=== PATIENT | female | born 1965 | race Hispanic/Latino ===

== ENCOUNTER 2019-03-28 07:08 | Day surgery (SDC) | payer BC ==
[~2019-03-28] VITALS: Ht 157.5 cm; Wt 102.1 kg
[2019-03-28] MEDS ORDERED: SODIUM CHLORIDE 0.9% 1000ML 1,000 ML IV ONE (07:49)
[2019-03-28] MEDS ORDERED: FISH OIL PO (08:21)
[2019-03-28] MEDS ORDERED: ASCO10007 PO (08:21)
[2019-03-28] MEDS ORDERED: ASPI-555 PO (08:21)
[2019-03-28] MEDS ORDERED: CHOL500051 PO (08:21)
[2019-03-28] MEDS ORDERED: IBUP-2071 PO (08:21)
[2019-03-28] MEDS ORDERED: CINN500C PO (08:21)
[2019-03-28] MEDS ORDERED: LEVO50TA6 PO (08:21)
[2019-03-28] MEDS ORDERED: COLLAGEN PO (08:21)
[2019-03-28] MEDS ORDERED: CALC1TAB85 PO (08:21)
[2019-03-28] MEDS ORDERED: CYAN-35 PO (08:21)
[2019-03-28] MEDS ORDERED: PROPOFOL 10 MG/ML 20ML VIAL IV ONE ×2 (08:37)
[2019-03-28 09:00] VITALS: BP 113/77
[2019-03-28 09:05] VITALS: BP 116/71
[2019-03-28 09:11] VITALS: BP 124/82
== END 2019-03-28 09:36 | disposition home or self-care (01) ==
LOC: DAH 07:08 → ENDO 07:08
PROVIDERS: ATTEND Surgery
DX: Z12.11 Encounter for screening for malignant neoplasm of colon (principal); K57.30 Diverticulosis of large intestine without perforation or abscess without bleeding; K64.0 First degree hemorrhoids; Z79.82 Long term (current) use of aspirin; Z79.899 Other long term (current) drug therapy; Z98.890 Other specified postprocedural states; Z90.710 Acquired absence of both cervix and uterus; Z72.89 Other problems related to lifestyle; Z80.0 Family history of malignant neoplasm of digestive organs
CPT/HCPCS: 45378; A4606; J2704 ×2; J7030